=== PATIENT | female | born 1945 | race African-American/Black ===

== ENCOUNTER 2020-02-14 10:46 | Outpatient (CLI) | payer OTHER, SELFPAY ==
--- NOTE | ~2020-02-14 | NM_ITS ---
EXAMINATION: NM nanci stress w perfusion DATE: 02/14/2020 13:29 INDICATION: Left-sided chest pain TECHNIQUE: Rest images were obtained following intravenous administration of 8.4 mCi Tc99m tetrofosmi n (Myoview). The patient was infused intravenously with Lexiscan (Regadenoson). Then, 26.7 mCi Tc99m tetrofosmin (Myoview) was administered intravenously, and stress images were obtained. Data was recon structed into short axis and horizontal and vertical long axis SPECT images. Gated SPECT images were also obtained. COMPARISON: None. FINDINGS: Small mild nonreversible perfusion defect involving the mid inferior and inferoapical segme nts. This appears more prominent on the rest than on the stress images, equivocal for infarct versus diaphragmatic attenuation artifact. There is normal left ventricular chamber size, wall motion and ej ection fraction. Left ventricular ejection fraction measures >70%. IMPRESSION: 1. Small mild nonreversible perfusion defect at the mid inferior and inferoapical segments changes eq uivocal for diaphragmatic attenuation artifact versus infarct. No reversible ischemia. 2. Left ventricular ejection fraction measuring >70%. Reviewed, dictated and finalized at location A. IMPRESSION: 1. Small mild nonreversible perfusion defect at the mid inferior and inferoapic al segments changes equivocal for diaphragmatic attenuation artifact versus inf arct. No reversible ischemia. 2. Left ventricular ejection fraction measuring >70%.
--- NOTE | 2020-02-14 10:54 | EST_ITS ---
Patient Info Name: Laura Stock Age: 74 years : 1945 Gender: Female Ht: 65 in Wt: 220 lbs BSA: 2.18 m2 Exam Date: 02/14/2020 11:57 AM Exam Location: [facility] Stress Patient Status: Outpatient Admit Date: 02/14/2020 Staff Ordering Physician: Stanley Leone DO Attending Provider: Stanley Leone DO Exercise Technologist: Martine Paiz RDCS Exercise Physician: Stanley Leone DO Exam Type: CA stress nanci w NM Study Info Indications R07.9 - Chest pain, unspecified A regadenoson stress test was performed. Summary 1. 1. Negative Lexiscan stress test for ischemic ST changes by ECG criteria. 2. 2. Underlying atrial fibrillation. 3. 3. Nuclear scan to follow and will be reported separately. Please correlate with it. 4. 4. Patient informed of the above results. Protocol: Lexiscan Stress ECG Details Stage: REST Duration (min): 5 min : 45 sec HR (bpm): 114 SBP (mmHg): 129 DBP (mmHg): 85 Stage: REST Duration (min): 8 min : 54 sec HR (bpm): 93 SBP (mmHg): 129 DBP (mmHg): 85 Stage: STAGE 1 Duration (min): 1 min : 0 sec HR (bpm): 127 SBP (mmHg): 139 DBP (mmHg): 94 Stage: RECOVERY Duration (min): 1 min : 0 sec HR (bpm): 132 SBP (mmHg): 181 DBP (mmHg): 85 Stage: RECOVERY Duration (min): 2 min : 0 sec HR (bpm): 125 SBP (mmHg): 181 DBP (mmHg): 85 Stage: RECOVERY Duration (min): 3 min : 0 sec HR (bpm): 128 SBP (mmHg): 154 DBP (mmHg): 86 Stage: RECOVERY Duration (min): 3 min : 9 sec HR (bpm): 125 SBP (mmHg): 154 DBP (mmHg): 86 Rest HR: 93 bpm Peak HR: 139 bpm Rest Sys BP: 129 mmHg Peak Sys BP: 181 mmHg Max Pred HR: 148 bpm % Max Pred HR: 94 % Target HR: 126 bpm Max RPP: 25,159 bpm*mmHg Termination Reason: Completed protocol Cardiac Symptoms: Shortness of breath Total Time: 1 min : 0 sec Rest Henry BP: 85 mmHg Peak Henry BP: 85 mmHg Total Dose: 0.4 mg Resting ECG Atrial fibrillation. Stress ECG No ST changes. Arrhythmias No other arrhythmias besides underlying atrial fibrillation. Report Signatures
== END 2020-02-14 10:47 | disposition home or self-care (01) ==
PROVIDERS: PCP Family Medicine; Visit Provider Internal Medicine Cardiovascular Disease
DX: R07.9 Chest pain, unspecified (principal); R91.8 Other nonspecific abnormal finding of lung field
CPT/HCPCS: 78452; 93017; A9502; J2785

== ENCOUNTER 2020-05-11 09:16 | Outpatient (CLI) | payer OTHER, SELFPAY ==
--- NOTE | ~2020-05-11 | MM_ITS ---
EXAMINATION: MM screening martín BI w dolores HISTORY: Screening TECHNIQUE: Craniocaudal and mediolateral oblique 3-D tomosynthesis images were obtained and synthetic 2-D images were generated. CAD analysis was submitted and interpreted. COMPARISON: Comparison to multiple prior studies sequentially, with oldest reviewed study dated 12/2016. BREAST PARENCHYMAL COMPOSITION: There are scattered areas of fibroglandular density. FINDINGS: There is no evidence of suspicious mass, calcification, or architectural distortion to sugg est malignancy in either breast. There has been no suspicious interval change. IMPRESSION: 1. No mammographic evidence of malignancy. 2. Recommend routine screening mammography in one year. BI-RADS Category 1: Negative Reviewed, dictated and finalized at location A.
== END 2020-05-11 09:17 | disposition home or self-care (01) ==
PROVIDERS: PCP Family Medicine; Visit Provider Family Medicine
DX: Z12.31 Encounter for screening mammogram for malignant neoplasm of breast (principal)
CPT/HCPCS: 77063; 77067

== ENCOUNTER 2020-06-12 08:20 | Outpatient (CLI) | payer OTHER, SELFPAY ==
--- NOTE | 2020-07-07 14:58 | SLEEP_ITS ---
This report was moved on July 12, 2020 to the correct visit, [id number]. Original report was signed by Dr. Quijano on July 07, 2020 at 1520. Sleep Study - Home Date of Study: 06/12/20 Ordering Provider: Stanley Leone DO Interpreting Physician: Malika Quijano MD Home Sleep Study Type: Apnea Link Air Height: 1.63 m Weight: 104.326 kg Body Mass Index: 39.4 [place]: 19 Reason for Sleep Study Hypersomnolence, fatigue Sleep History Laura Stock is a 74 yo female with a history of a stroke on December 05, 2019. She has other medical comorbidities including hypertension atrial fibrillation hyperlipidemia. She did not complete the entire sleep survey. She does complain of shortness of breath. She is tired when she walks. She has difficulty going up and down stairs. At times she has chest pains. She started having more problems after her stroke on December 04. She denies snoring. She rarely awakens at night with heartburn belching or coughing. She occasionally awakens from sleep feeling short of breath. She does not have trouble sleep with a cold. She occasionally gasp for breath at night and occasionally has breathing problems at night reported to her by others. She frequently sweats excessively at night and notices her heart pounding or beating irregularly at night. She constantly fall asleep during the day constantly involuntarily but never while driving. She does not fall asleep with physical effort. She occasionally has loss of muscle tone was strong emotion. She does not have daytime difficulties at work due to excessive sleepiness. She does not feel paralyzed on waking or falling asleep and does not have vivid dreamlike scenes upon awakening or falling asleep. She has never for a to go to sleep. She does not have nightmares. She occasionally remembers her dreams and occasionally has racing thoughts. She does not feel sad or depressed. She frequently has anxiety. She does not have muscular tension or notice parts her body jerking. She frequently has crawling and aching feelings in her legs and leg pain at night. She does not have morning jaw pain. She does not grind her teeth during sleep. She constantly is bothered by pain during the day frequently is awakened by pain at night frequently wakes up feeling stiff in the morning with sore achy muscles and pain in the neck and spine. She does not list her usual bedtime or wake-up time. She does wake at night to go to the bathroom. She takes naps. Naps can be refreshing. Habits: Tobacco none for 24 years. She does drink caffeine. No alcohol or recreational drugs. [facility] Past Medical History Medical History Atrial fibrillation Cerebral infarction JETER (dyspnea on exertion) Hyperlipidemia Hypertension Medications Home Medications Medication Instructions Recorded Confirmed Type baclofen 10 mg tablet 10 mg PO DAILY #270 tablet 03/14/20 Rx Medications: vitamin D3 4000 units daily vitamin B12 500 mcg daily fluticasone nasal spray 50 mcg 2 sprays each nostril daily atorvastatin 20 mg daily apixaban 5 mg b.i.d. omeprazole 20 mg delayed release daily baclofen 10 mg p.o. t.i.d. diltiazem 240 mg 1 daily metoprolol succinate 100 mg delayed release 1 daily hydrocodone/acetaminophen 5 mg/ 325 mg 1 Q 6 hours p.r.n. pain Sleep Procedure This test was performed using 4 channel monitoring including respiratory effort channel snoring channel heart rate channel and oxygen saturation channel. This study was scored using CMS guidelines. Sleep Architecture Not applicable for home sleep test. Respiratory Analysis The apnea-hypopnea index is elevated at 19. She had 50 apneas. The majority 86%, 43 of the total n
== END 2020-06-12 08:21 | disposition home or self-care (01) ==
LOC: ANHCSM 08:20
PROVIDERS: PCP Family Medicine; Visit Provider Internal Medicine Cardiovascular Disease
DX: G47.10 Hypersomnia, unspecified (principal)
CPT/HCPCS: 95806

== ENCOUNTER 2020-08-15 00:37 | Outpatient (CLI) | payer OTHER, SELFPAY ==
[2020-08-15 18:51] LABS: SARS-CoV-2 RNA PCR Negative
== END 2020-08-15 00:38 | disposition home or self-care (01) ==
LOC: ANHCOVIDDT 00:37
PROVIDERS: PCP Family Medicine; Visit Provider Internal Medicine Critical Care Medicine
DX: Z01.812 Encounter for preprocedural laboratory examination (principal); Z20.828 Contact with and (suspected) exposure to other viral communicable diseases
CPT/HCPCS: 87635; C9803; U0003

== ENCOUNTER 2020-08-17 08:59 | Outpatient (CLI) | payer OTHER, SELFPAY ==
--- NOTE | 2020-10-02 17:35 | WPDSLEEPSTUD ---
Sleep Study Date of Study: 08/17/20 Ordering Provider: Stanley Leone DO Interpreting Physician: Malika Quijano MD Sleep Study Type: CPAP Titration Height: 1.63 m Weight: 104.326 kg Body Mass Index: 39.4 Neck Circumference: 41.91 cm [place]: 19 Reason for Sleep Study home sleep test 06/12/2020 with central sleep apnea Sleep History Laura Stock us a 75 year old female who had a portable home sleep test Jun 12, 2020 with an AHI of 19 and desaturation to 88% with [place] respirations during 6% of the test. She had 86% of the total number of apneas scored as central apneas. This patient has a history of a stroke on December 05, 2019 which is a medical comorbidity that can be associated with central sleep apnea. She has Her ejection fraction is normal 60% on echo 12/06/2019. She does complain of shortness of breath. She is tired when she walks. She has difficulty going up and down stairs. At times she has chest pains. She started having more problems after her stroke on December 04. She denies snoring. She rarely awakens at night with heartburn belching or coughing. She occasionally awakens from sleep feeling short of breath. She does not have trouble sleep with a cold. She occasionally gasp for breath at night and occasionally has breathing problems at night reported to her by others. She frequently sweats excessively at night and notices her heart pounding or beating irregularly at night. She constantly fall asleep during the day constantly involuntarily but never while driving. She does not fall asleep with physical effort. She occasionally has loss of muscle tone with strong emotion. She does not have daytime difficulties at work due to excessive sleepiness. She does not feel paralyzed on waking or falling asleep and does not have vivid dreamlike scenes upon awakening or falling asleep. She is never afraid to go to sleep. She does not have nightmares. She occasionally remembers her dreams and occasionally has racing thoughts. She does not feel sad or depressed. She frequently has anxiety. She does not have muscular tension or notice parts her body jerking. She frequently has crawling and aching feelings in her legs as well as leg pain at night. She does not have morning jaw pain. She does not grind her teeth during sleep. She constantly is bothered by pain during the day frequently is awakened by pain at night frequently wakes up feeling stiff in the morning with sore achy muscles and pain in the neck and spine. She does not list her usual bedtime or wake-up time. She does wake at night to go to the bathroom. She takes naps. Naps can be refreshing. Habits: Tobacco none for 24 years. She does drink caffeine. No alcohol or recreational drugs. [facility] Past Medical History Medical History Atrial fibrillation (~11/2019) CAD (coronary artery disease) Colon cancer screening Essential (primary) hypertension GERD without esophagitis H/O deep venous thrombosis RLE, RUE, Rt carotid History of gastrointestinal bleeding Hyperlipidemia Ischemic stroke (~11/2019) Osteoarthritis of left knee Osteopenia of femoral neck, bilateral Overactive bladder Patellofemoral arthritis of left knee Pulmonary HTN Surgical History Surgical History H/O colonoscopy with polypectomy (~06/2018) Dr Blackmon History of gastric bypass (~2013) History of left shoulder replacement (~2012) Family History Family History Mother Acute myocardial infarction Grandparent Acute myocardial infarction Father Family history of malignant neoplasm Sibling Acute myocardial infarction Other Diabetes mellitus Family history of arthritis Family history of cardiovascular disease Family history of congenital heart disease Hypertension Social History Social History (Reviewed 10/02/20 @ 17:4
[2020-10-02 18:22] VITALS: BMI 39.4
== END 2020-08-17 09:00 | disposition home or self-care (01) ==
LOC: ANHCSM 08:59
PROVIDERS: PCP Family Medicine; Visit Provider Internal Medicine Cardiovascular Disease
DX: G47.31 Primary central sleep apnea (principal)
CPT/HCPCS: 95811

== ENCOUNTER 2020-10-02 17:08 | Emergency (ER) | payer OTHER, SELFPAY ==
[2020-10-02] VITALS (8 sets, daily range): BP systolic 146–167; BP diastolic 84–114; PULSE 82–96; RESP 15–20; TEMP 36.7; O2SAT 96–98
--- NOTE | ~2020-10-02 | XR_ITS ---
XR chest 2V DATE: 10/02/2020 17:42 INDICATION: Mid to left chest pain radiating down arm TECHNIQUE: AP and lateral views COMPARISON: 11/20/2010 2 view chest FINDINGS: Heart size is within normal range. Is aortic tortuosity. No hilar or mediastinal enlargemen t. No pulmonary infiltrate or consolidation, pleural effusion or pulmonary vascular congestion or pneumo thorax. Left glenohumeral joint replacement. Diffuse osteopenia. IMPRESSION: No active cardiopulmonary disease Reviewed, dictated and finalized at location A. OVEMENT COORDINATOR
--- NOTE | 2020-10-02 17:13 | ECG_ITS ---
Measurements Intervals [place] Rate: 77 P: [place]: 0 QRS: 69 QRSD: 80 T: 29 QT: 363 QTc: 412 Interpretive Statements ATRIAL FIBRILLATION LOW QRS VOLTAGE IN PRECORDIAL LEADS BASELINE ARTIFACT- III, AVL, AVF, V1-V6 ABNORMAL ECG Electronically Signed On 10-02-2020 19:28:32 STORAGE GARAGE ATTENDANT by Stanley Leone D.O.
[2020-10-02 17:28] LABS: Basophils Percent Auto 0.6 % (0.2-1.2); Eosinophils Absolute Auto 0.1 K/mm3 (0-0.3); Eosinophils Percent Auto 2.5 % (0-4.4); Hematocrit 42.7 % (37.0-47.0); Hemoglobin 14.4 g/dL (12.0-15.0); Immature Granulocyte Absolute 0.01 K/mm3 (0.00-0.031); Immature Granulocyte Percent A 0.2 % (0-0.5); Lymphocytes Absolute Auto 2.44 K/mm3 (0.9-3.2); Lymphocytes Percent Auto 51.3 % (18.3-44.2); Mean Corpuscular HGB Conc 33.7 g/dl (32-36); Mean Corpuscular Hemoglobin 28.7 pg (26-34); Mean Corpuscular Volume 85.1 fl (80-100); Monocytes Absolute Auto 0.4 K/mm3 (0.1-0.6); Monocytes Percent Auto 8.8 % (2.6-8.5); Neutrophils Absolute Auto 1.7 K/mm3 (1.3-6.7); Neutrophils Percent Auto 36.6 % (45.5-73.1); Platelet Count Result 204 k/mm3 (150-375); Red Blood Count 5.02 M/mm3 (4.2-5.4); Red Cell Distribution Width 13.9 % (11.5-14.5); White Blood Count 4.8 K/mm3 (4.5-10.0)
--- NOTE | 2020-10-02 17:33 | ED.GENADULT ---
HPI - General Adult General Chief complaint: Chest Pain Stated complaint: CHEST PAIN Time Seen by Provider: 10/02/20 17:13 Source: patient History of Present Illness HPI narrative: Patient is a 75 y/o female complaining of left sided chest pain since last night. She describes her pain as a squeezing sensation and rates it as 9/10 initially and 7/10 currently. She states that her pain radiates to her left arm. There is no alleviating or exacerbating. She had some sweating. She has no fever, cough or SOB. She states that she has chronic A fib and she is on Eliquis. Related Data Home Medications Medication Instructions Recorded Confirmed cholecalciferol (vitamin D3) 100 2,000 unit PO DAILY tablet 10/18/19 09/14/20 mcg (4,000 unit) tablet cyanocobalamin (vitamin B-12) 500 500 mcg PO DAILY 10/18/19 09/14/20 mcg tablet fluticasone propionate 50 2 spray NASAL DAILY 10/18/19 09/14/20 mcg/actuation nasal spray,suspension docusate sodium 100 mg capsule 100 mg PO DAILY 07/27/20 09/14/20 multivitamin 1 tablet PO DAILY 07/27/20 09/14/20 Allergies Allergy/AdvReac Type Severity Reaction Status Date / Time pineapple Allergy Severe Dyspnea / Verified 10/02/20 17:17 SOB/ WELTS codeine Allergy Mild HIVES Verified 10/02/20 17:17 oxycodone Allergy Mild N&V Verified 10/02/20 17:17 Honey Bee Allergy Severe Dyspnea / Uncoded 10/02/20 17:17 SOB Review of Systems Constitutional: Constitutional: Denies chills, Reports excessive sweating, Denies fever(s), Denies headache(s) and Denies weakness Eyes: Eyes: Denies blurry vision ENT: Denies headache(s) and Denies neck pain Cardiovascular: Cardiovascular: Reports chest pain and Denies dyspnea Respiratory: Respiratory: Denies cough and Denies dyspnea Gastrointestinal: Gastrointestinal: Denies abdominal pain, Denies diarrhea, Denies nausea and Denies vomiting Genitourinary: Genitourinary: Denies hematuria and Denies dysuria Musculoskeletal: Musculoskeletal: Denies back pain and Denies neck pain Neurologic: Denies headache(s) and Denies weakness [facility] Past Medical History Medical History Atrial fibrillation (~11/2019) CAD (coronary artery disease) Colon cancer screening Essential (primary) hypertension GERD without esophagitis H/O deep venous thrombosis RLE, RUE, Rt carotid History of gastrointestinal bleeding Hyperlipidemia Ischemic stroke (~11/2019) Osteoarthritis of left knee Osteopenia of femoral neck, bilateral Overactive bladder Patellofemoral arthritis of left knee Pulmonary HTN Surgical History Surgical History H/O colonoscopy with polypectomy (~06/2018) Dr Blackmon History of gastric bypass (~2013) History of left shoulder replacement (~2012) Family History Family History Mother Acute myocardial infarction Grandparent Acute myocardial infarction Father Family history of malignant neoplasm Sibling Acute myocardial infarction Other Diabetes mellitus Family history of arthritis Family history of cardiovascular disease Family history of congenital heart disease Hypertension Social History Social History Smoking status: Former smoker Second hand tobacco smoke exposure: No Smoking end date: 09/08/95 Alcohol intake: never Substance use: never Gender identity (if verbalized by the patient): Female Exam Const: General: no acute distress and well developed Orientation/consciousness: oriented to person, oriented to place, oriented to time and patient oriented x3 HENMT: Head: normocephalic Ears: external ears normal General nose exam: Normal external nose present Eyes: General: appearance normal, both eyes and all related structures Conjunctivae: conjunctivae normal Neck: Neck: normal visual inspect
[2020-10-02] MEDS: ASPIRIN 81 MG CHEWABLE TABLET 324 MG PO (17:40)
[2020-10-02 17:41] LABS: Anion Gap 5 mmol/L (8-16); Blood Urea Nitrogen 17 mg/dL (7-17); Calcium 8.6 mg/dL (8.4-10.2); Carbon Dioxide 28 mmol/L (22-30); Chloride 105 mmol/L (98-107); Estimated CRCL calculation 53 ml/min; Estimated Glomerular Filt Rate > 60; Glucose 85 mg/dL (65-105); Potassium 4.4 mmol/L (3.4-5.0); Sodium 138 mmol/L (137-145)
[2020-10-02 17:52] LABS: Troponin I < 0.012 ng/mL (0.000-0.034)
[2020-10-02 18:17] LABS: INR 0.9; Prothrombin Time 13.2 Seconds (11.1-14.7)
[2020-10-02 18:18] LABS: Partial Thromboplastin Time 28.2 SECONDS (22.3-36.8)
[2020-10-02 20:47] LABS: Troponin I < 0.012 ng/mL (0.000-0.034)
== END 2020-10-02 22:06 | disposition home or self-care (01) ==
PROVIDERS: Emergency Medicine; Emergency Provider Emergency Medicine; PCP Family Medicine
DX: R07.9 Chest pain, unspecified (principal); I48.20 Chronic atrial fibrillation, unspecified; I25.10 Atherosclerotic heart disease of native coronary artery without angina pectoris; I10 Essential (primary) hypertension; E78.5 Hyperlipidemia, unspecified; K21.9 Gastro-esophageal reflux disease without esophagitis; N32.81 Overactive bladder; I27.20 Pulmonary hypertension, unspecified; M17.12 Unilateral primary osteoarthritis, left knee; M85.852 Other specified disorders of bone density and structure, left thigh; M85.851 Other specified disorders of bone density and structure, right thigh; Z79.01 Long term (current) use of anticoagulants; Z86.73 Personal history of transient ischemic attack (TIA), and cerebral infarction without residual deficits; Z98.84 Bariatric surgery status; Z96.612 Presence of left artificial shoulder joint; Z87.891 Personal history of nicotine dependence
CPT/HCPCS: 36415; 71046; 80048; 84484; 85025; 85610; 85730; 93005; 99284; A9270

== ENCOUNTER → 2020-10-31 02:37 | Outpatient (CLI) | payer OTHER, SELFPAY ==
[2020-10-31 20:35] LABS: SARS-CoV-2 RNA PCR Negative
== END ==
PROVIDERS: PCP Family Medicine; Visit Provider Internal Medicine Gastroenterology
DX: Z01.812 Encounter for preprocedural laboratory examination (principal); Z20.822 Contact with and (suspected) exposure to COVID-19
CPT/HCPCS: C9803; U0003; U0005

== ENCOUNTER 2020-11-03 00:52 | Day surgery (SDC) | payer OTHER, SELFPAY ==
[2020-10-18 09:40] VITALS: BMI 37.0
--- NOTE | 2020-11-02 09:45 | WPDANESEPPF ---
Anes - Initial Pre Proc Eval Procedure: Operation Date: 11/03/20 09:45 Proposed Procedures p Esophagogastroduodenoscopy - Willy Jackson MD Date/Time: 11/02/20 09:45 Surgeon: Willy Jackson MD Pre Op Diagnosis: GERD Patient Data Age: 75 Gender: F Height: 1.65 m Weight: 101 kg Allergies Allergy/AdvReac Type Severity Reaction Status Date / Time pineapple Allergy Severe Dyspnea / Verified 10/30/20 10:02 SOB/ WELTS codeine Allergy Mild HIVES Verified 10/30/20 10:02 oxycodone Allergy Mild N&V Verified 10/30/20 10:02 omeprazole [From [facility]] AdvReac Hives Verified 11/03/20 08:14 Honey Bee Allergy Severe Dyspnea / Uncoded 10/30/20 10:02 SOB Home Medications Medication Instructions Recorded Confirmed Type cholecalciferol (vitamin D3) 100 2,000 unit PO DAILY tablet 10/18/19 10/30/20 History mcg (4,000 unit) tablet cyanocobalamin (vitamin B-12) 500 500 mcg PO DAILY 10/18/19 10/30/20 History mcg tablet fluticasone propionate 50 2 spray NASAL DAILY 10/18/19 10/30/20 History mcg/actuation nasal spray,suspension baclofen 10 mg tablet 10 mg PO TID #90 tablet 02/14/20 10/30/20 Rx atorvastatin 20 mg tablet 20 mg PO DAILY #90 tablet 05/11/20 10/30/20 Rx docusate sodium 100 mg capsule 100 mg PO DAILY 07/27/20 10/30/20 History multivitamin 1 tablet PO DAILY 07/27/20 10/30/20 History oxybutynin chloride 5 mg 5 mg PO DAILY #90 tablet 07/27/20 10/30/20 Rx tablet,extended release 24 hr diltiazem HCl 240 mg 240 mg PO DAILY #90 cap 08/24/20 10/30/20 Rx capsule,extended release 24 hr, controlled metoprolol succinate 100 mg 100 mg PO DAILY #90 tablet 08/24/20 10/30/20 Rx tablet,extended release 24 hr apixaban 5 mg tablet 5 mg PO BID #180 tablet 09/14/20 10/30/20 Rx tramadol 50 mg tablet 50 mg PO BID PRN #60 tablet 09/14/20 10/30/20 Rx omeprazole 40 mg capsule,delayed 40 mg PO DAILY #90 cap 10/10/20 10/30/20 Rx release Patient hx anesthesia problems: none Family hx anesthesia problems: none PMFSH Past Medical History Medical History Atrial fibrillation (~11/2019) CAD (coronary artery disease) Colon cancer screening Essential (primary) hypertension GERD without esophagitis H/O deep venous thrombosis RLE, RUE, Rt carotid History of gastrointestinal bleeding Hyperlipidemia Ischemic stroke (~11/2019) Osteoarthritis of left knee Osteopenia of femoral neck, bilateral Overactive bladder Patellofemoral arthritis of left knee Pulmonary HTN Surgical History Surgical History H/O colonoscopy with polypectomy (~06/2018) Dr Blackmon History of gastric bypass (~2013) History of left shoulder replacement (~2012) Family History Family History Mother Acute myocardial infarction Grandparent Acute myocardial infarction Father Family history of malignant neoplasm Sibling Acute myocardial infarction Other Diabetes mellitus Family history of arthritis Family history of cardiovascular disease Family history of congenital heart disease Hypertension Social History Social History Smoking packs per day: 0.5 Smoking cigarettes per day: 10.0 Years smoked: 30 Smoking pack-years: 15.00 Smoking status: Former smoker Tobacco type: cigarettes Second hand tobacco smoke exposure: No Smoking end date: 09/08/95 Alcohol intake: never Substance use: never Substance use type: does not use Living arrangements: with family Gender identity (if verbalized by the patient): Female Spiritual care concerns: No Anes - Eval Final PreProcedure Day of Procedure 11/02/20 09:45 Patient weight: obese Heart: regular rate and rhythm Lungs: clear to auscultation and normal air movement Airway: Mallampati sc
[2020-11-03 08:16] VITALS: BP 138/87; PULSE 80; RESP 18; TEMP 36.4; O2SAT 98
[2020-11-03] MEDS: LACTATED RINGERS 1,000 ML 150 ML IV CONT (08:27)
--- NOTE | 2020-11-03 10:03 | PM.HPGS ---
History of Present Illness History of Present Illness Consent: Risks, benefits, and alternatives have been discussed and questions answered. Patient agrees to proceed with procedure. Chief complaint: GERD Narrative: Laura Stock is a 75 year old female with dyspepsia despite ppi, she also had bariatric surgery years ago. Review of Systems Constitutional: Constitutional: Denies headache(s) and Denies weakness Eyes: Eyes: Denies blurry vision ENT: Reports Normal hearing present, Denies headache(s) and Denies neck pain Cardiovascular: Cardiovascular: Denies chest pain and Denies dyspnea Respiratory: Respiratory: Denies dyspnea Gastrointestinal: Gastrointestinal: Reports no additional gastrointestinal complaints Genitourinary: Genitourinary: Denies dysuria Musculoskeletal: Musculoskeletal: Denies neck pain Integumentary/Breasts: Skin/Breast: Denies dry skin Neurologic: Reports Normal hearing present, Denies headache(s) and Denies weakness Psychiatric: Psychiatric: Denies anxiety Endocrine: Endocrine: Denies change in body appearance Hematologic/Lymphatic: Hematologic/Lymphatic: Denies easy bleeding Allergic/Immunologic: Allergic/Immunologic: Denies urticaria PMFSH Past Medical History Medical History Atrial fibrillation (~11/2019) CAD (coronary artery disease) Colon cancer screening Essential (primary) hypertension GERD without esophagitis H/O deep venous thrombosis RLE, RUE, Rt carotid History of gastrointestinal bleeding Hyperlipidemia Ischemic stroke (~11/2019) Osteoarthritis of left knee Osteopenia of femoral neck, bilateral Overactive bladder Patellofemoral arthritis of left knee Pulmonary HTN Surgical History Surgical History H/O colonoscopy with polypectomy (~06/2018) Dr Blackmon History of gastric bypass (~2013) History of left shoulder replacement (~2012) Family History Family History Mother Acute myocardial infarction Grandparent Acute myocardial infarction Father Family history of malignant neoplasm Sibling Acute myocardial infarction Other Diabetes mellitus Family history of arthritis Family history of cardiovascular disease Family history of congenital heart disease Hypertension Social History Social History Smoking packs per day: 0.5 Smoking cigarettes per day: 10.0 Years smoked: 30 Smoking pack-years: 15.00 Smoking status: Former smoker Tobacco type: cigarettes Second hand tobacco smoke exposure: No Smoking end date: 09/08/95 Alcohol intake: never Substance use: never Substance use type: does not use Living arrangements: with family Gender identity (if verbalized by the patient): Female Spiritual care concerns: No Meds Home Medications and Allergies Home Medications Medication Instructions Recorded Confirmed Type cholecalciferol (vitamin D3) 100 2,000 unit PO DAILY tablet 10/18/19 10/30/20 History mcg (4,000 unit) tablet cyanocobalamin (vitamin B-12) 500 500 mcg PO DAILY 10/18/19 10/30/20 History mcg tablet fluticasone propionate 50 2 spray NASAL DAILY 10/18/19 10/30/20 History mcg/actuation nasal spray,suspension baclofen 10 mg tablet 10 mg PO TID #90 tablet 02/14/20 10/30/20 Rx atorvastatin 20 mg tablet 20 mg PO DAILY #90 tablet 05/11/20 10/30/20 Rx docusate sodium 100 mg capsule 100 mg PO DAILY 07/27/20 10/30/20 History multivitamin 1 tablet PO DAILY 07/27/20 10/30/20 History oxybutynin chloride 5 mg 5 mg PO DAILY #90 tablet 07/27/20 10/30/20 Rx tablet,extended release 24 hr diltiazem HCl 240 mg 240 mg PO DAILY #90 cap 08/24/20 10/30/20 Rx capsule,extended release 24 hr, controlled metoprolol succinate 100 mg 100 mg PO DAILY #90 tablet 08/24/20 10/30/20 Rx
[2020-11-03 10:05] VITALS: BP 105/75; PULSE 100; RESP 23; O2SAT 96
[2020-11-03 10:15] VITALS: BP 118/74; PULSE 69; RESP 24; O2SAT 100
[2020-11-03 10:25] VITALS: BP 116/70; PULSE 61; RESP 20; O2SAT 99
== END 2020-11-03 10:35 | disposition home or self-care (01) ==
PROVIDERS: PCP Family Medicine; Visit Provider Internal Medicine Gastroenterology
PROC: 0DJ08ZZ Inspection of Upper Intestinal Tract, Via Natural or Artificial Opening Endoscopic (ICD-10-PCS; CPT 43235; principal; 2020-11-03 09:45)
DX: K44.9 Diaphragmatic hernia without obstruction or gangrene (principal); K21.9 Gastro-esophageal reflux disease without esophagitis; Z79.01 Long term (current) use of anticoagulants; K29.70 Gastritis, unspecified, without bleeding; Z98.84 Bariatric surgery status; R10.13 Epigastric pain; I25.10 Atherosclerotic heart disease of native coronary artery without angina pectoris; I48.91 Unspecified atrial fibrillation; E78.5 Hyperlipidemia, unspecified; Z86.73 Personal history of transient ischemic attack (TIA), and cerebral infarction without residual deficits; I27.20 Pulmonary hypertension, unspecified; Z86.718 Personal history of other venous thrombosis and embolism; Z87.891 Personal history of nicotine dependence; E66.8 Other obesity; Z68.37 Body mass index [BMI] 37.0-37.9, adult
CPT/HCPCS: 43239; 88305; C9803; J2001; J2704; J7120; U0003; U0005

== ENCOUNTER 2021-05-15 09:18 | Outpatient (CLI) | payer OTHER, SELFPAY ==
--- NOTE | ~2021-05-15 | MM_ITS ---
EXAMINATION: MM screening [facility] HISTORY: Screening mammogram TECHNIQUE: Craniocaudal and mediolateral oblique 3-D tomosynthesis images were obtained and synthetic 2-D images were generated. Bilateral rotated lateral cc views. CAD analysis was submitted and interp reted. COMPARISON: 05/11/2020, 04/27/2019, 04/14/2018 bilateral digital screening mammogram examinations BREAST PARENCHYMAL COMPOSITION: The breasts are almost entirely fatty. FINDINGS: There is no evidence of suspicious mass, calcification, or architectural distortion to sugg est malignancy in either breast. There has been no suspicious interval change. IMPRESSION: 1. No mammographic evidence of malignancy. 2. Recommend routine screening mammography in one year. BI-RADS Category 1: Negative Reviewed, dictated and finalized at location A.
== END 2021-05-15 09:19 | disposition home or self-care (01) ==
LOC: ANHIMG 09:21
PROVIDERS: PCP Family Medicine; Visit Provider Family Medicine
DX: Z12.31 Encounter for screening mammogram for malignant neoplasm of breast (principal)
CPT/HCPCS: 77063; 77067

== ENCOUNTER 2022-06-14 09:05 | Outpatient (CLI) | payer OTHER, SELFPAY ==
--- NOTE | ~2022-06-14 | MM_ITS ---
EXAMINATION: MM screening [facility] BI w dolores HISTORY: Screening mammogram TECHNIQUE: Craniocaudal and mediolateral oblique 3-D tomosynthesis images were obtained and synthetic 2-D images were generated. CAD analysis was submitted and interpreted. COMPARISON: 05/25/2021, 05/11/2020, 04/27/2019 BREAST PARENCHYMAL COMPOSITION: There are scattered areas of fibroglandular density. FINDINGS: No suspicious mass, calcification, or architectural distortion are identified in either robbie ast to suggest malignancy. There has been no suspicious interval change. IMPRESSION: 1. No mammographic evidence of malignancy. 2. Recommend routine screening mammography in one year. BI-RADS Category 1: Negative Reviewed, dictated and finalized at location A.
== END 2022-06-14 09:06 | disposition home or self-care (01) ==
LOC: ANHIMG 09:06
PROVIDERS: PCP Family Medicine; Visit Provider Family Medicine
DX: Z12.31 Encounter for screening mammogram for malignant neoplasm of breast (principal)
CPT/HCPCS: 77063; 77067